=== PATIENT | male | born 1985 | race Caucasian/White ===

== ENCOUNTER 2018-08-24 12:40 | Emergency (ER) | payer OTHER ==
[~2018-08-24] VITALS: Ht 175.3 cm; Wt 63.6 kg
--- NOTE | 2018-08-24 13:18 | NUR ---
PT TO ROOM AT THIS TIME.
--- NOTE | 2018-08-24 13:23 | NUR ---
33 y/o male presents to ed with c/o CP AND LEFT ARM PAIN. PER PT "IT HAS HURT FOR ONE MONTH." FRIEND BEDSIDE. PT PLACED ON CONT PULSE OX,NIBP, MELT SUPERINTENDANT. NO ACUTE DISTRESS NOTED.
[2018-08-24] MEDS ORDERED: PLEASE ENTER ALLERGIES MC SCH (14:30)
[2018-08-24 14:31] VITALS: BP 132/88
--- NOTE | 2018-08-24 14:33 | NUR ---
PT RESTING ON GURNEY AWAITING IMAGING. NO ACUTE DISTRESS NOTED. MEDICATION ADMINISTERED PER EMAR. NO NEEDS REQUESTED AT THIS TIME. FRIEND BEDSIDE.
[2018-08-24 14:58] LABS: BASOPHILS # (AUTO) 0.02 x10^3/uL (0-0.1); BASOPHILS % (AUTO) 0 % (0-1); EOSINOPHILS # (AUTO) 0.06 x10^3/uL (0-0.4); EOSINOPHILS % (AUTO) 1 % (1-7); LYMPHOCYTES # (AUTO) 1.07 x10^3/uL (1-3.4); LYMPHOCYTES % (AUTO) 20 % (22-44); MD NO; MEAN CORPUSCULAR HEMOGLOBIN 29.3 pg (27.5-34.5); MEAN CORPUSCULAR HGB CONC 33.8 g/dL (33.2-36.2); MEAN CORPUSCULAR VOLUME 86.7 fL (81-97); MEAN PLATELET VOLUME 7.9 fL (7.4-10.4); MONOCYTES # (AUTO) 0.34 x10^3/uL (0.2-0.8); MONOCYTES % (AUTO) 6 % (2-9); NEUTROPHILS # (AUTO) 3.96 x10^3/uL (1.8-6.8); NEUTROPHILS % (AUTO) 73 % (42-75); PLATELET COUNT 157 x10^3/uL (130-400); RED BLOOD COUNT 5.33 x10^6/uL (4.38-5.82); RED CELL DISTRIBUTION WIDTH 12.7 % (9.4-14.8)
[2018-08-24 15:06] LABS: ALBUMIN 4.2 g/dL (3.4-5.0); ANION GAP 5 mmol/L (5-15); CALCIUM 9.4 mg/dL (8.5-10.1); CHLORIDE 108 mmol/L (98-107); CREATININE 1.57 mg/dL (0.7-1.3)
[2018-08-24 15:10] LABS: TROPONIN I < 0.015 ng/mL (0.000-0.045)
--- NOTE | 2018-08-24 15:36 | NUR ---
Patient/Caregiver given discharge instructions and they have confirmed that they understand the instructions. Patient ambulatory with steady gait. PT LEFT WITH ALL PERSONAL BELONGINGS.
== END 2018-08-24 15:38 | disposition home or self-care (01) ==
LOC: ED 14:20
DX: G44.219 Episodic tension-type headache, not intractable (principal); N28.9 Disorder of kidney and ureter, unspecified; R51 Headache; E78.5 Hyperlipidemia, unspecified; E78.00 Pure hypercholesterolemia, unspecified; R07.89 Other chest pain; Z87.891 Personal history of nicotine dependence
CPT/HCPCS: 36415; 70450; 80048; 82040; 84484; 85025; 93005; 99284

== ENCOUNTER 2018-09-10 18:39 | Emergency (ER) | payer OTHER ==
[~2018-09-10] VITALS: Ht 165.1 cm; Wt 61.7 kg
--- NOTE | 2018-09-10 19:16 | NUR ---
MONSERRAT RN: PT. IS A & O X 4 WITH C/O HURATDO PAIN, DIZZINESS AND NAUSEA X 2 WEEKS. PT. WAS SEEN ON 08/24/18. CT SCAN WAS NORMAL AT THAT TIME. PT. WAS ALSO SEEN IN [place], [place]. PT.'S PUPILS ARE [place]ENET[place]. HAND GRASPS ARE EQUAL AND STRONG. DPS ARE EQUAL AND STRONG. PT.'S ABD. IS SOFT AND FLAT WITH BS + X 4 QUADS. PT.'S LUNGS ARE CTA. PULSES ARE +2 THROUGHOUT. PT. HAS THE CALL LIGHT IN PLACE AND THE SIDERAILS ARE UP X 2. REPORT TO YAJAIRA HERMAN. 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
[2018-09-10] MEDS ORDERED: MECLIZINE CHEWABLE 25 MG TAB ONE (19:28)
[2018-09-10] MEDS ORDERED: ONDANSETRON 2MG/ML, 2ML ONE (19:28)
[2018-09-10] MEDS ORDERED: SODIUM CHLORIDE 0.9% 1,000ML IVBOLUS ONE (19:30)
[2018-09-10] MEDS ORDERED: MECLIZINE CHEWABLE 25 MG TAB PO ONE (19:30)
[2018-09-10] MEDS ORDERED: SODIUM CHLORIDE FLUSH 10ML SYR IVF ONE (19:30)
[2018-09-10] MEDS ORDERED: ONDANSETRON 2MG/ML, 2ML IVPush ONE (19:30)
[2018-09-10 19:43] VITALS: BP 122/75
--- NOTE | 2018-09-10 19:45 | NUR ---
IV ACCESS ESTABLISHED. PT. WAS MEDICATED ORDERED. VSS. PT. IS RESTING WITH THE HOB ELEVATED GREATER THAN 30 DEGREES. SIDERAILS REMAIN UP X 2 WITH THE CALL LIGHT IN PLACE.
[2018-09-10 20:03] LABS: BASOPHILS # (AUTO) 0.01 x10^3/uL (0-0.1); BASOPHILS % (AUTO) 0 % (0-1); EOSINOPHILS # (AUTO) 0.12 x10^3/uL (0-0.4); EOSINOPHILS % (AUTO) 3 % (1-7); LYMPHOCYTES # (AUTO) 1.36 x10^3/uL (1-3.4); LYMPHOCYTES % (AUTO) 31 % (22-44); MD NO; MEAN CORPUSCULAR HEMOGLOBIN 28.9 pg (27.5-34.5); MEAN CORPUSCULAR HGB CONC 33.5 g/dL (33.2-36.2); MEAN CORPUSCULAR VOLUME 86.2 fL (81-97); MEAN PLATELET VOLUME 7.9 fL (7.4-10.4); MONOCYTES % (AUTO) 9 % (2-9); NEUTROPHILS # (AUTO) 2.47 x10^3/uL (1.8-6.8); NEUTROPHILS % (AUTO) 57 % (42-75); PLATELET COUNT 162 x10^3/uL (130-400); RED BLOOD COUNT 4.85 x10^6/uL (4.38-5.82); RED CELL DISTRIBUTION WIDTH 12.8 % (9.4-14.8)
[2018-09-10 20:07] LABS: ALANINE AMINOTRANSFERASE 16 U/L (12-78); ALBUMIN 4.3 g/dL (3.4-5.0); ANION GAP 9 mmol/L (5-15); CALCIUM 8.9 mg/dL (8.5-10.1); CHLORIDE 108 mmol/L (98-107); CREATININE 1.48 mg/dL (0.7-1.3)
[2018-09-10 20:10] LABS: ALKALINE PHOSPHATASE 60 U/L (45-117); BILIRUBIN,TOTAL 0.8 mg/dL (0.2-1.0); TOTAL PROTEIN 7.1 g/dL (6.4-8.2)
--- NOTE | 2018-09-10 20:27 | NUR ---
ns d/c'd at this time. pt states positive relief of symptoms and dizziness is minimal at this time.
== END 2018-09-10 21:16 | disposition home or self-care (01) ==
LOC: ED 20:50
DX: E86.0 Dehydration (principal); N28.9 Disorder of kidney and ureter, unspecified; G44.219 Episodic tension-type headache, not intractable; E78.00 Pure hypercholesterolemia, unspecified; E78.5 Hyperlipidemia, unspecified; R79.89 Other specified abnormal findings of blood chemistry
CPT/HCPCS: 36415; 80053; 85025; 93005; 96361; 96374; 99284; J2405; J7030